=== PATIENT | male | born 1990 | race Hispanic/Latino ===

== ENCOUNTER 2025-04-11 11:08 | Emergency (ER) | payer OTHER ==
[~2025-04-11] VITALS: Ht 172.7 cm; Wt 81.6 kg
--- NOTE | 2025-04-11 11:30 | ERN ---
General Chief Complaint: Ankle Problem Stated Complaint: LT ANKLE INJURY Time Seen by MD: 11:11 Source: patient History of Present Illness Initial Comments Patient is a 34-year-old male brought in secondary to left ankle pain. Patient states that he experienced a fall couple of days ago and has been having left ankle pain since then. She states that the pain is exacerbated with movement especially weight-bearing. Allergies: Coded Allergies: morphine (Unverified Adverse Reaction, Mild, NAUSEA, 04/11/25) Past Medical History Past Medical History: No Pertinent History, High Cholesterol Past Surgical History: Other ROS Dictation CONSTITUTIONAL: No chills, no fever, no weakness, no diaphoresis, no malaise. HEAD/FACE: No signs of trauma. EENT: No eye pain, no blurred vision, no tearing, no double vision, no ear pain, no ear discharge, no nose pain, no nasal congestion, no throat pain, no throat swelling, no mouth pain. RESPIRATORY: No cough, no orthopnea, no SOB, no stridor, no wheezing. CARDIOVASCULAR: No chest pain, no edema, no palpitations, no syncope. GASTROINTESTINAL/ABDOMINAL: No abdominal pain, no constipation, no diarrhea, no nausea, no vomiting. GENITOURINARY: No abnormal discharge, no dysuria, no frequent urination, no hematuria. No complaints of pain in the genitals. MUSCULOSKELETAL: No back pain, no gout, joint pain, joint swelling, no muscle pain, no muscle stiffness, no neck pain. INTEGUMENTARY: No change in color, no change in hair/nails, no dryness, no lesion, no lumps, no rash. NEUROLOGICAL/PSYCH: No anxiety, not depressed, no emotional problem, no headache, no numbness, no pre-existing deficit, no history of seizures, no tremors, no weakness. HEMATOLOGIC/LYMPHATIC: Not anemic, no history of blood clots, no apparent bleeding, no bruising, glands not swollen. All Systems Negative, Except as Noted. Physical Exam Physical Exam Dictation VITAL SIGNS: Reviewed. GENERAL APPEARANCE: Alert, oriented x3, no acute distress, obese. HEAD AND FACE: Non-traumatic. EYES: PERRL, pink conjunctivas, eyelid no trauma, anterior chamber clear. EARS: Pinnas intact and no signs of trauma or erythema. Ear canals clear and no discharge. TMs no erythema. NOSE: No discharge, no bleeding. OROPHARYNX: Mouth normal, teeth no caries, tongue pink. Pharynx clear, no erythema. Tonsils no exudates, no abscesses noted. Mucous membrane moist. NECK: Supple, non-tender, no thyromegaly, no masses, no JVD, no bruits. BREAST: Deferred. CHEST: No tenderness, no crepitus, no paradoxical movement, no retractions. LUNGS: Clear, well-ventilated, symmetric, no rales, no wheezing, no rhonchi, no stridor, good breath sounds bilaterally. HEART: Regular rate, regular rhythm, no murmur, no gallops. VASCULAR: No peripheral edema. ABDOMEN: Soft, positive bowel sounds, nondistended, no guarding, nontender, no rebound, no masses no hepatomegaly, no splenomegaly, no Rae's sign, no hernias. RECTAL: Deferred. GENITAL: Deferred. NEUROLOGICAL: Normal speech, gross motor function intact, gross sensory function intact. MUSCULOSKELETAL: Neck nontender, full range of motion, back nontender, full range of motion. EXTREMITIES: Nontender, full range of motion. Left ankle pain on palpation, left lateral malleolar tenderness on palpation and swelling SKIN: Color pink, dry, no turgor, no rash, no lacerations, no abrasions, no contusions. LYMPHATICS: Deferred. Results Laboratory and Microbiology Labs Reviewed?: Yes EKG/XRAY/US/CT/MRI X-RAY Comment [place] [id number] [place] [id number] IMAGING REPORT Signed PATIENT: ROB RUSSELL MR#: [id number] : 1990 SEX: M AGE: 34 LOCATION: [facility] ORDER 16 STATUS: REG REPORT#: [id number] SERVICE 16 REASON: fall ORDERING PHYSICIAN: STACI CONNELLY MD PROCEDURE: [id number] - ANKLE COMP 3VWS LT Exam Type: ANKLE COMP 3VWS LT Clinical Information: fall Comparison: None Findings: The bone examination is unremarkable. No fractures or dislocations are seen. No radiopaque foreign bodies are noted. Soft tissues are preserved. IMPRESSION: Normal examination. DICTATED BY: BRENDA CARPIO MD DATE: 04/11/25 1240 ELECTRONICALLY SIGNED BY: BRENDA CARPIO MD DATE: 04/11/25 1243 MDM MDM: Differential diagnosis: Sprain ankle, malleolar fracture, ligament strain, Rationale: Tests considered and ordered secondary to shared decision making include: Previous outside records reviewed: Old ER visits. Risk of complication and/or morbidity or mortality of patient management: None Medications-Per medication reconciliation Patient is a 34-year-old male coming in to be evaluated for left ankle pain. X- ray did not disclose acute findings. Gel splint he will be provided I did advised him appropriate follow up with PCP. Patient will be discharged in stable condition ED Course Orders Procedure Category Date Status Time Ankle Comp 3vws Lt RAD 04/11/25 Resulted 11:17 Ketorolac PHA 04/11/25 Complete Tromethamine 30mg/Ml 11:30 Current Medications Medications (Trade) Dose Ordered Sig/Kev Route PRN Reason Start Time Stop Time Status Last Admin Dose Admin Ketorolac Tromethamine (toRADol) 30 mg ONCE ONCE IM 04/11/25 11:30 04/11/25 11:31 DC 04/11/25 12:00 Vital Signs Date Time Temp Pulse Resp B/P (MAP) Pulse Ox O2 Delivery O2 Flow Rate FiO2 04/11/25 11:09 99.0 92 20 114/71 Room Air DX & DISP Disposition: Discharge Departure Impression: Primary Impression: Ankle sprain Condition: Stable Scripts Naproxen (Naproxen) 375 Mg Tablet. 375 MG PO BID for 7 Days, #14 TAB Prov: STACI CONNELLY MD 04/11/25 Additional Instructions: FOLLOW-UP WITH PRIMARY CARE PROVIDER IN 1 TO 2 DAYS. TAKE MEDICATIONS DIRECTED HERE IN THE EMERGENCY ROOM. OKAY TO CONTINUE HOME MEDICATIONS UNLESS OTHERWISE DISCUSSED DURING YOUR VISIT IN THE EMERGENCY ROOM TODAY. RETURN TO YOUR NEAREST EMERGENCY ROOM IF SYMPTOMS WORSEN OR IF THERE IS NO IMPROVEMENT. CALL 911 IF YOU NEED IMMEDIATE ASSISTANCE. TAKE TYLENOL [id number] NEEDED AND IF NO CONTRAINDICATIONS ARE PRESENT. INCREASE ORAL HYDRATION. A WOUND CULTURE OR URINE CULTURE WAS ORDERED HERE IN THE EMERGENCY ROOM DEPARTMENT PLEASE FOLLOW-UP WITH PRIMARY CARE PROVIDER AND ADVISE THEM TO GET REPEAT PORTS FROM OUR FACILITY. IF YOU HAD ANY PRIYANKA WRAP/SPLINTS THAT WERE APPLIED HERE, PLEASE DO NOT REMOVE THEM UNTIL YOU SEE YOUR PRIMARY CARE OR SPECIALTY. Referrals: Referrals: SHI BECK MD Time of Disposition: 12:47 STACI CONNELLY MD April 11, 2025 11:29
[2025-04-11] MEDS: ketOROlac 30MG VIAL (30MG/ML) IM ONE (12:00)
--- NOTE | 2025-04-11 12:43 | HMCIMG ---
Exam Type: ANKLE COMP 3VWS LT Clinical Information: fall Comparison: None Findings: The bone examination is unremarkable. No fractures or dislocations are seen. No radiopaque foreign bodies are noted. Soft tissues are preserved. IMPRESSION: Normal examination.
[2025-04-11 12:47] VITALS: BP 115/71; PULSE 88; RESP 20; TEMP 99; O2SAT 99
[2025-04-11] MEDS ORDERED: NAPR-1505 PO (12:48)
== END 2025-04-11 13:03 | disposition home or self-care (01) ==
LOC: EEVIPCON 11:08 → EDH 11:08
DX: S93.409A Sprain of unspecified ligament of unspecified ankle, initial encounter (principal); Z88.5 Allergy status to narcotic agent; W18.39XA Other fall on same level, initial encounter; Y93.89 Activity, other specified; Y92.89 Other specified places as the place of occurrence of the external cause; Y99.8 Other external cause status
CPT/HCPCS: 99283; 73610; 96372; J1885